=== PATIENT | female | born 1975 | race Caucasian/White ===

== ENCOUNTER 2021-10-27 11:31 | Emergency (ER) | payer MEDICAID ==
[2021-10-27] MEDS ORDERED: Sodium Chloride 0.9% 10 ML Syringe FLUSH PRN (11:55)
[2021-10-27] MEDS ORDERED: Sodium Chloride 0.9% 1,000 ML IV STA (12:28)
[2021-10-27] MEDS ORDERED: Ondansetron 4 MG/2 ML SDV IVPUSH ONE (12:28)
[2021-10-27] MEDS ORDERED: HYDROmorphone 0.5 MG/0.5 ML Syringe IVPUSH ONE (12:28)
== END 2021-10-27 15:50 | disposition home or self-care (01) ==
LOC: JD.ED 11:31
DX: N92.1 Excessive and frequent menstruation with irregular cycle (principal); N80.0 Endometriosis of uterus; F17.210 Nicotine dependence, cigarettes, uncomplicated; Z88.6 Allergy status to analgesic agent; Z79.899 Other long term (current) drug therapy; Z20.822 Contact with and (suspected) exposure to COVID-19
CPT/HCPCS: 36415; 76830; 80053; 84439; 84443; 84703; 85025; 86850; 86900; 86901; 87635; 96361; 96374; 96375; 99284; J1170; J2405; J3490; J7030; U0002

== ENCOUNTER 2021-12-21 16:20 | Emergency (ER) | payer MEDICAID ==
[2021-12-21] MEDS ORDERED: Ondansetron 4 MG in Sodium Chloride 0.9% 50 ML IV ONE (19:26)
[2021-12-21] MEDS ORDERED: Morphine 4 MG/ML Syringe IVPUSH ONE (19:26)
[2021-12-21 20:20] LABS: ESTIMATED GFR 93 mL/min (>60)
== END 2021-12-22 01:45 | disposition home or self-care (01) ==
LOC: JD.ED 16:20
DX: K57.90 Diverticulosis of intestine, part unspecified, without perforation or abscess without bleeding (principal); K44.9 Diaphragmatic hernia without obstruction or gangrene; F17.210 Nicotine dependence, cigarettes, uncomplicated; Z88.6 Allergy status to analgesic agent; Z79.899 Other long term (current) drug therapy
CPT/HCPCS: 36415; 74177; 80053; 83605; 83690; 85014; 85018; 85025; 86850; 86900; 86901; 96365; 96375; 99284; J2270; J2405